=== PATIENT | female | born 1940 | race Caucasian/White ===

== ENCOUNTER → 2019-08-31 | Outpatient (CLI) | payer MEDICARE ==
[2015-12-18 14:15] VITALS: BP 109/58
[2019-08-31 10:25] LABS: ALBUMIN 3.8 g/dL (3.4-5.0); ALBUMIN/GLOBULIN RATIO 1.1 (1.0-1.7); CALCIUM 8.4 mg/dL (8.5-10.1); CREATININE 0.9 mg/dL (0.6-1.0); GFR 60.4; POTASSIUM 4.2 mmol/L (3.5-5.1); TOTAL BILIRUBIN 0.3 mg/dL (0.2-1.0); TOTAL PROTEIN 7.3 g/dL (6.4-8.2)
== END | disposition home or self-care (01) ==
LOC: LAB 09:41
PROVIDERS: ATTEND Nurse Practitioner
DX: E78.5 Hyperlipidemia, unspecified (principal)
CPT/HCPCS: 36415; 80053; 80061

== ENCOUNTER 2020-09-15 12:26 | Emergency (ER) | payer MEDICARE ==
[~2020-09-15] VITALS: Ht 165.1 cm; Wt 73.5 kg
[2020-09-15 12:44] VITALS: BP 145/81
[2020-09-15] MEDS ORDERED: KETOROLAC 30 MG/ML VIAL. IM ONE (13:30)
--- NOTE | 2020-09-15 13:34 | PHYS DOC ---
Past History Past Medical History: CAD, Depression, Diabetes, GERD, High Cholesterol, Hypertension, Other Additional Past Medical Histor: breast cancer 1991 Past Surgical History: Cancer Surgery, Coronary Bypass Surgery, Other Additional Past Surgical Histo: r mastectomy; thyroidectomy; hiatal hernia repair, rapped esophagus for DAYSI Alcohol Use: Rarely Drug Use: None General Adult EDM: Chief Complaint: LOWEREXTREMITY INJURY HPI: HPI: Patient is a 79-year-old female who presents with left leg pain. Patient denies injury. Patient states "last week it started hurting in the middle of my butt and radiated down to the back of my left knee". Patient has increased pain when she is standing and walking makes the pain worse. She has not contacted her PCP prior to arrival who wanted her to come in to get an ultrasound to rule out a DVT. Patient denies shortness of breath or chest pain. patient has history of diabetes and high cholesterol. Review of Systems: Review of Systems: Constitutional: Denies fever or chills Eyes: Denies change in visual acuity HENT: Denies nasal congestion or sore throat Respiratory: Denies cough or shortness of breath Cardiovascular: Denies chest pain or edema GI: Denies abdominal pain, nausea, vomiting, bloody stools or diarrhea : Denies dysuria Musculoskeletal: Denies back pain, pain in left upper leg that radiates behind her knee Integument: Denies rash Neurologic: Denies headache, focal weakness or sensory changes Endocrine: Denies polyuria or polydipsia Lymphatic: Denies swollen glands Psychiatric: Denies depression or anxiety Allergies: Allergies: Allergies Coded Allergies Type Severity Reaction Last Updated Verified Penicillins Allergy Intermediate Swelling 09/15/20 Yes Sulfa (Sulfonamide Antibiotics) Allergy Intermediate Rash 09/15/20 Yes Physical Exam: PE: Constitutional: Well developed, well nourished, no acute distress, non-toxic appearance. [] HENT: Normocephalic, atraumatic, bilateral external ears normal, oropharynx moist, no oral exudates, nose normal. [] Eyes: PERRLA, EOMI, conjunctiva normal, no discharge. [] Neck: Normal range of motion, no tenderness, supple, no stridor. [] Cardiovascular:Heart rate regular rhythm, no murmur [] Lungs & Thorax: Bilateral breath sounds clear to auscultation [] Abdomen: Bowel sounds normal, soft, no tenderness, no masses, no pulsatile masses. [] Skin: Warm, dry, no erythema, no rash. [] Back: No tenderness, no CVA tenderness. [] Extremities: Left leg tenderness, ROM intact, no edema, pedal pulses intact. [] Neurologic: Alert and oriented X 3, normal motor function, normal sensory function, no focal deficits noted. [] Psychologic: Affect normal, judgement normal, mood normal. [] Current Patient Data: Vital Signs: Vital Signs Date Time Temp Pulse Resp B/P (MAP) Pulse Ox O2 Delivery O2 Flow Rate FiO2 09/15/20 12:44 98.0 86 18 145/81 (102) 97 Room Air EKG: EKG: [] Radiology/Procedures: Radiology/Procedures: []EXAM: Left lower extremity venous Doppler sonogram. HISTORY: Pain and swelling. TECHNIQUE: Osborne scale and color Doppler sonographic evaluation of the left lower extremity veins with spectral waveform analysis was performed. FINDINGS: There is normal color flow, normal compressibility and there are normal spectral waveforms in the common femoral, superficial femoral, popliteal, and posterior tibial veins. The greater saphenous vein is surgically absent. IMPRESSION: No Doppler evidence of lower extremity deep venous thrombosis. Electronically signed by: Jade Ochoa MD (09/15/2020 2:12 PM) [id number] Heart Score: C/O Chest Pain: No Risk Factors: Risk Factors: DM, Current or recent (<one month) smoker, HTN, HLP, family hi story of CAD, obesity. Risk Scores: Score 0 - 3: 2.5% MACE over next 6 weeks - Discharge Home Score 4 - 6: 20.3% MACE over next 6 weeks - Admit for Clinical Observation Score 7 - 10: 72.7% MACE over next 6 weeks - Early Invasive Strategies Course & Med Decision Making: Course & Med Decision Making Pertinent Labs and Imaging studies reviewed. (See chart for details) [] Pain starts in the middle of left buttocks and radiates down behind the left knee. I ordered an ultrasound to rule out a DVT. Patient was given Toradol for discomfort. Her son is negative for DVT. Patient most likely has sciatic. I am sending patient home with a prescription for Flexeril and prednisone. Patient is okay with this plan. Patient agrees to return to the emergency room with worsening symptoms or concerns. Enoch Disclaimer: nEoch Disclaimer: This electronic medical record was generated, in whole or in part, using a voice recognition dictation system. Departure Departure: Impression: Primary Impression: Sciatic leg pain Disposition: 01 DC HOME SELF CARE/HOMELESS Condition: STABLE Referrals: HAWA BANKS (PCP) Patient Instructions: Sciatica, [id number] Additional Instructions: You are seen in the emergency room today for left leg pain. Your ultrasound was negative for a DVT. Sending you home with a prescription for Flexeril which is a muscle relaxer. Continue to take ibuprofen at home for discomfort. You may return to the emergency room with worsening symptoms or concerns. EMERGENCY DEPARTMENT GENERAL DISCHARGE INSTRUCTIONS Thank you for coming to [facility] (ED) today and trusting us with you care. We trust that you had a positivie experience in our Emergency Department. If you wish to speak to the department management, you may call the director at [phone]. YOUR FOLLOW UP INSTRUCTIONS ARE FOLLOWS: 1. Do you have a private Doctor? If you do not have a private doctor, please ask for a resource list of physicians or clinics that may be able to assist you with fo llow up care. 2. The Emergency Physician has interpreted your x-rays. The X-Ray specialist will also review them. If there is a change in the findings, you will be notified in 48 hours when at all possible. 3. A lab test or culture has been done, your results will be reviewed and you will be notified if you need a change in treatment. ADDITIONAL INSTRUCTIONS AND INFORMATION: 1. Your care today has been supervised by a physician who is specially trained in emergency care. Many problems require more than one evaluation for a complete diagnosis and treatment. We recommend that you schedule your follow up appointment as recommended to ensure complete treatment of you illness or injury. If you are unable to obtain follow up care and continue to have a problem, or if your condition worsens, we recommend that you return to the ED. 2. We are not able to safely determine your condition over the phone nor are we able to give sound medical advice over the phone. For these safety reasons, if you call for medical advice we will ask you to come to the ED for further evaluation. 3. If you have any questions regarding these discharge instructions please call the ED at [phone]. SAFETY INFORMATION: In the interest of safety, wellness, and injury prevention; we encourage you to wear your sealbelt, if you smoke; quite smoking, and we encourage family to use a protecti ve helmet for bicycling and other sporting events that present an increased risk for head injury. IF YOUR SYMPTOMS WORSEN OR NEW SYMPTOMS DEVELOP, OR YOU HAVE CONCERNS ABOUT YOUR CONDITION; OR IF YOUR CONDITION WORSENS WHILE YOU ARE WAITING FOR YOUR FOLLOW UP APPOINTMENT; EITHER CONTACT YOUR PRIMARY CARE DOCTOR, THE PHYSICIAN WHOSE NAME AND NUMBER YOU WERE GIVEN, OR RETURN TO THE ED IMMEDIATELY. Scripts Cyclobenzaprine Hcl (CYCLOBENZAPRINE HCL) 10 Mg Tablet 10 MG PO TID PRN for PAIN for 10 Days, #30 TAB Prov: ARIELLA GRANT APRN 09/15/20 ARIELLA GRANT APRN Sep 15, 2020 13:34
--- NOTE | 2020-09-15 14:14 | RAD ---
EXAM: Left lower extremity venous Doppler sonogram. HISTORY: Pain and swelling. TECHNIQUE: Osborne scale and color Doppler sonographic evaluation of the left lower extremity veins with spectral waveform analysis was performed. FINDINGS: There is normal color flow, normal compressibility and there are normal spectral waveforms in the common femoral, superficial femoral, popliteal, and posterior tibial veins. The greater saphen ous vein is surgically absent. IMPRESSION: No Doppler evidence of lower extremity deep venous thrombosis. Electronically signed by: Jade Ochoa MD (09/15/2020 2:12 PM) [id number]
[2020-09-15] MEDS ORDERED: CYCL-331 PO (14:37)
== END 2020-09-15 14:52 | disposition home or self-care (01) ==
LOC: ER 12:26
DX: M79.605 Pain in left leg (principal); M54.32 Sciatica, left side; F32.9 Major depressive disorder, single episode, unspecified; E11.9 Type 2 diabetes mellitus without complications; K21.9 Gastro-esophageal reflux disease without esophagitis; E78.00 Pure hypercholesterolemia, unspecified; I10 Essential (primary) hypertension; I25.810 Atherosclerosis of coronary artery bypass graft(s) without angina pectoris; Z88.0 Allergy status to penicillin; Z88.2 Allergy status to sulfonamides
CPT/HCPCS: 93971; 96372; 99284; J1885

== ENCOUNTER 2020-09-23 13:11 | Emergency (ER) | payer MEDICARE ==
[~2020-09-23] VITALS: Ht 165.1 cm; Wt 73.5 kg
[~2020-09-23 13:11] MED LIST: CYCL-331 PO
--- NOTE | 2020-09-23 13:14 | PHYS DOC ---
Past History Past Medical History: CAD, Depression, Diabetes, GERD, High Cholesterol, Hypertension, Other Additional Past Medical Histor: breast cancer 1991 Past Surgical History: Cancer Surgery, Coronary Bypass Surgery, Other Additional Past Surgical Histo: r mastectomy; thyroidectomy; hiatal hernia repair, rapped esophagus for DAYSI Alcohol Use: Rarely Drug Use: None Adult General HPI HPI Patient is a 79-year-old female presents emergency department stating at approximately 730 this morning she was walking outside to feed outside cats while carrying a tray of Food stumbled over a door mat that the wind had blown over on his side falling forward hitting her head at the right brow area on a iron table and then falling to the cement front porch onto her right hip. Patient states she was able to get up off the ground and stand up walked inside felt some slight pain dressed her laceration on her right brow and took a 10 mg hydrocodone for pain. Patient states that she was alternating ice and heat to her right hip area noting that her pain increased as the day went by and decided to come to the emergency department. Patient currently rates her pain a 9/10 on a 1-10 pain scale while she is walking around. Patient denies loss of consciousness, verbal disturbances, dizziness, head or neck pain. Patient denies any nausea, vomiting, diarrhea, chest pain, chest congestion, nasal congestion, abdominal pain, nausea, vomiting, or diarrhea. Patient states that she has hydrocodone 10/325 mg at home for sciatica pain that was diagnosed a week ago by Dr. Hillman. Patient denies any sciatica pain at this time. Patient reports a surgical history of four-vessel coronary bypass in 2000, right mastectomy 1991, thyroidectomy in 2018, hiatal hernia repair with esophageal wrap in March 2020, hysterectomy in 1998, and a tubal ligation in 1969. Patient reports a medication allergy of penicillin and sulfa drugs, states that she becomes nauseated with oral Toradol however cannot tolerate IM or IV Toradol. Patient reports her last tetanus immunization greater than 5 years ago. Review of Systems Review of Systems 14 body systems of review of systems have been reviewed. See HPI for pertinent positives and negative responses, otherwise all other systems are negative, nonpertinent or noncontributory. Allergies Allergies Allergies Coded Allergies Type Severity Reaction Last Updated Verified Penicillins Allergy Intermediate Swelling 09/15/20 Yes Sulfa (Sulfonamide Antibiotics) Allergy Intermediate Rash 09/15/20 Yes Physical Exam Physical Exam Constitutional: Well developed, well nourished, no acute distress, non-toxic appearance. 79-year-old female in no apparent distress was able to transfer self from wheelchair to bed without difficulty. HENT: Normocephalic, atraumatic, bilateral external ears normal, oropharynx moist, no oral exudates, nose normal. Oropharynx moist, no infectious process appreciated, bilateral TMs within normal limits, no lymphadenopathy of the head or neck appreciated, bilateral turbinates nonerythematous without drainage, no mack sign appreciated, no raccoon eyes sign appreciated. Patient does have 0.8 cm laceration to right brow, bleeding controlled. Area of ecchymosis around the laceration of right brow, no swelling or crepitus appreciated. Eyes: PERRLA, EOMI, conjunctiva normal, no discharge. Neck: Normal range of motion, no tenderness, supple, no stridor. No C-spine tenderness appreciated, no nuchal rigidity, no meningismus signs. Cardiovascular:Heart rate regular rhythm, heart sounds S1-S2 to auscultation. Lungs & Thorax: Bilateral breath sounds clear to auscultation all lung garcia, no adventitious lung sounds appreciated. Abdomen: Bowel sounds normal, soft, no tenderness, no masses, no pulsatile masses. Skin: Warm, dry, no erythema, no rash. See HEENT note regarding skin laceration. Back: No tenderness to palpation along midline spinal vertebral column bony prominences or adjacent structures of the back. Extremities: No tenderness, no cyanosis, no clubbing, ROM intact, no edema. Distal cap refill less than 2 seconds, +2/4 pulses. Pain to palpation on right hip, increased pain with pelvic squeeze, limited passive range of motion related to pain of right hip, no crepitus noted, no shortening or external rotation of right lower extremity. No loss of sensation of the right lower extremity. Neurologic: Alert and oriented X 3, normal motor function, normal sensory function, no focal deficits noted. Psychologic: Affect normal, judgement normal, mood normal. Current Patient Data Lab Results Laboratory Tests Test 09/23/20 15:00 Urine Collection Type Unknown Urine Color Yellow Urine Clarity Clear Urine pH 7.0 Urine Specific [place] 1.020 Urine Protein Neg Urine Glucose (UA) Neg mg/dL Urine Ketones (Stick) Neg mg/dL Urine Blood Trace Urine Nitrite Neg Urine Bilirubin Neg Urine Urobilinogen Dipstick 0.2 mg/dL Urine Leukocyte Esterase Trace Urine RBC 0 /HPF Urine WBC Occ /HPF Urine Squamous Epithelial Cells Occ /LPF Urine Bacteria 0 /HPF Urine Mucus Slight /LPF Current Medications Medications (Trade) Dose Ordered Sig/Mamta Route PRN Reason Start Time Stop Time Status Last Admin Dose Admin Ketorolac Tromethamine (Toradol 15mg Vial) 15 mg 1X ONCE IM 09/23/20 13:45 09/23/20 13:50 DC 09/23/20 14:01 Acetaminophen/ Hydrocodone Bitart (Lortab 10/325) 1 tab 1X ONCE PO 09/23/20 13:45 09/23/20 13:50 DC 09/23/20 14:03 Diphtheria/ Pertussis/Tetanus Vacc (ADACEL TDap SYRINGE) 0.5 ml ONCE ONCE VAX IM 09/23/20 13:45 09/23/20 13:50 DC 09/23/20 14:04 EKG EKG [] Radiology/Procedures Radiology/Procedures []PATIENT: ISH DUMAS EACCOUNT: [id number]#: [id number] : 1940 LOCATION: ER AGE: 79 SEX: F EXAM STATUS: REG ER ORD. PHYSICIAN: ANY JOHN APRN REASON: FALL, RT BROW CONTUSION/LACERATION, BLUNT HEAD TRAUMA PROCEDURE: CT HEAD AND CERVICAL SPINE WO Examination: CT head and cervical spine without contrast CT HEAD INDICATION: Reason: FALL, RT BROW CONTUSION/LACERATION, BLUNT HEAD TRAUMA COMPARISON: None Available. Exposure: One or more of the following individualized dose reduction techniques were utilized for this examination: 1. Automated exposure control 2. Adjustment of the mA and/or kV according to patient size 3. Use of iterative reconstruction technique TECHNIQUE: 5 mm contiguous axial images were obtained from the skull base to the vertex in both bone and soft tissue algorithm. FINDINGS: No abnormal attenuation within the brain parenchyma. No evidence of acute intracranial hemorrhage. No extra-axial fluid collections. No mass effect or midline shift. Ventricular size is appropriate. Basal ci sterns are patent. No fractures identified.Osborne-white differentiation is preserved.Globes and orbits are within normal limits. Paranasal sinuses and mastoid air cells are clear. CT CERVICAL SPINE INDICATION: Reason: FALL, RT BROW CONTUSION/LACERATION, BLUNT HEAD TRAUMA / Spl. Instructions: / History: COMPARISON: None Available. Technique: 2.5 mm contiguous axial images were obtained from the skull base through the cervicothoracic junction in both bone and soft tissue algorithm. Additional sagittal and coronal reconstructions were also performed. FINDINGS: Vertebral body height and alignment are maintained. Cervical lordosis is preserved. The lateral masses of C1 are aligned upon C2. No fractures identified. The bony canal is patent throughout. Moderate intervertebral disc height loss identified in the cervical spine most at C5-C6, C6-C7 vertebral levels with small anterior and posterior osteophyte formation. The facets are well aligned. The paraspinous soft tissues are unremarkable. Visualized intracranial contents are unremarkable. Lung apices are clear. IMPRESSION: 1. No acute intracranial findings. 2. No acute fracture cervical spine. Correlate clinically. 3.Moderate degenerative changes cervical spine. Electronically signed by: Logan Radford MD (09/23/2020 2:48 PM) [id number] DICTATED AND SIGNED BY: LOGAN RADFORD MD DATE: 09/23/20 1435 CC: ANY JOHN APRN; [facility] BANKS ~MTH0 0 PATIENT: ISH DUMAS EACCOUNT: [id number] : 1940 LOCATION: ER AGE: 79 SEX: F EXAM STATUS: REG ER ORD. PHYSICIAN: ANY JOHN APRN REASON: FALL, RT HIP PAIN PROCEDURE: HIP RIGHT 2V WITH PELVIS PROCEDURE: XR BILATERAL HIP (WITH OR WITHOUT PELVIS) 2 VIEWS_RIGHT STUDY DATE: 09/23/2020 CLINICAL INDICATION / HISTORY: Reason: FALL, RT HIP PAIN / Spl. Instructions: / History: . TECHNIQUE: Three views of the right hip were obtained. COMPARISON: None FINDINGS: The osseous structures are normally mineralized. There is normal bony alignment present with the femoral heads well-seated within the acetabuli. There is cortical discontinuity in the subcapital right femoral neck, suspicious for nondisplaced fracture. There is otherwise no evidence of acute fracture or dislocation identified. The overlying soft tissues are grossly unremarkable. IMPRESSION: Findings suspicious for nondisplaced acute subcapital right hip fracture. Electronically signed by: Tracy Sarmiento MD (09/23/2020 2:37 PM) [id number] DICTATED AND SIGNED BY: TRACY SARMIENTO MD DATE: 09/23/20 1435 CC: ANY JOHN APRN; [facility] BANKS Aneesh ~MTH0 0 Heart Score C/O Chest Pain: No Risk Factors: Risk Factors: DM, Current or recent (<one month) smoker, HTN, HLP, family history of CAD, obesity. Risk Scores: Risk Factors: DM, Current or recent (<one month) smoker, HTN, HLP, family hist ory of CAD, obesity. Course & Med Decision Making Course & Med Decision Making Pertinent Labs and Imaging studies reviewed. (See chart for details) 79-year-old female, vital signs reviewed, presents emergency department co ncerning right hip pain after fall. Physical examination concerning for possible head injury related to laceration of right brow, and possible bony injury of right hip or pelvis related to fall and physical examination findings. A CT head and C-spine ordered in the ER today along with x-ray imaging of right hip and pelvis. Patient's tetanus status was brought up-to-date today in the emergency department, right brow laceration see laceration repair note. Patient was given 15 mg IM Toradol along with 110/325 mg [place] in the ED for 9/10 pain. A urinalysis assay was ordered to rule out blood in urine for possible hip fracture induced urethral injury. X-ray concerning for " Findings suspicious for nondisplaced acute subcapital right hip fracture." Per house radiologist interpretation. CT head and C-spine negative for acute process per house radiologist interpretation. Reexamination of the patient, patient is now pain-free, stating that she only feels slight pain when she moves her right hip. Discussed x-ray findings with patient, recommended transfer to [facility] for evaluation with orthopedic specialty. Patient refused this stating she wishes to go to [facility] since she sees a Dr. Hillman that is with the [facility]. Called [facility] transfer team, spoke with trauma physician Dr. Lara and ER physician Dr. Manriquez who agreed to accept patient in transfer to [facility] for admission and further evaluation of right hip fracture. Discussed this with patient who is amenable to this plan, patient awaiting transfer to [facility] at this time. Patient remains pain-free, patient is now n.p.o. until examined by [facility] physicians. Enoch Disclaimer Dragon Disclaimer This electronic medical record was generated, in whole or in part, using a voice recognition dictation system. Departure Departure: Impression: Primary Impression: Closed right hip fracture Additional Impressions: Facial laceration Closed head injury Disposition: 02 DC/TRF OTHER SHORT TERM HOS (Patient transferred to [facility] for orthopedic specialty.) Condition: STABLE Referrals: HAWA BANKS (PCP) Laceration Repair Lac Repair Indication: [] Laceration right brow Procedure: The patient was placed in the appropriate position and anesthesia around the not indicated. The area was then chlorhexidine soap and normal saline. The laceration was closed with Dermabond skin glue. Laceration repair site left open no dressing needed. Total repaired wound length: 0.8 cm Other Items: There were no other items. The patient tolerated the procedure well. Complications: No complications. Problem Qualifiers Primary Impression: Closed right hip fracture Encounter type: initial encounter Qualified Codes: S72.001A - Fracture of unspecified part of neck of right femur, initial encounter for closed f racture Additional Impressions: Facial laceration Encounter type: initial encounter Qualified Codes: S01.81XA - Laceration without foreign body of other part of head, initial encounter Closed head injury Encounter type: initial encounter Qualified Codes: S09.90XA - Unspecified injury of head, initial encounter ANY JOHN CERAMIC RESEARCH ENGINEER Sep 23, 2020 13:14
[2020-09-23] MEDS ORDERED: KETOROLAC 15 MG/ML VIAL. IM ONE (13:45)
[2020-09-23] MEDS ORDERED: DIPH,PERTUSS(ACELL),TET VAC/PF 0.5 ML SYRINGE. VAX IM ONE (13:45)
[2020-09-23] MEDS ORDERED: HYDROcodone/APAP 10/325 1 TAB TABLET PO ONE (13:45)
--- NOTE | 2020-09-23 14:39 | RAD ---
PROCEDURE: XR BILATERAL HIP (WITH OR WITHOUT PELVIS) 2 VIEWS_RIGHT STUDY DATE: 09/23/2020 CLINICAL INDICATION / HISTORY: Reason: FALL, RT HIP PAIN / Spl. Instructions: / History: . TECHNIQUE: Three views of the right hip were obtained. COMPARISON: None FINDINGS: The osseous structures are normally mineralized. There is normal bony alignment present wit h the femoral heads well-seated within the acetabuli. There is cortical discontinuity in the subcapi isabela right femoral neck, suspicious for nondisplaced fracture. There is otherwise no evidence of acute fracture or dislocation identified. The overlying soft tissues are grossly unremarkable. IMPRESSION: Findings suspicious for nondisplaced acute subcapital right hip fracture. Electronically signed by: Jackson Sarmiento MD (09/23/2020 2:37 PM) [id number]
--- NOTE | 2020-09-23 14:50 | RAD ---
Examination: CT head and cervical spine without contrast CT HEAD INDICATION: Reason: FALL, RT BROW CONTUSION/LACERATION, BLUNT HEAD TRAUMA COMPARISON: None Available. Exposure: One or more of the following individualized dose reduction techniques were utilized for thi s examination: 1. Automated exposure control 2. Adjustment of the mA and/or kV according to patient size 3. Use of iterative reconstruction technique TECHNIQUE: 5 mm contiguous axial images were obtained from the skull base to the vertex in both bone and soft tissue algorithm. FINDINGS: No abnormal attenuation within the brain parenchyma. No evidence of acute intracranial hemorrhage. No extra-axial fluid collections. No mass effect or midline shift. Ventricular size is appropriate. Basal cisterns are patent. No fractures identified.Osborne-white differentiation is preserved.Globes and orbits are within normal l imits. Paranasal sinuses and mastoid air cells are clear. CT CERVICAL SPINE INDICATION: Reason: FALL, RT BROW CONTUSION/LACERATION, BLUNT HEAD TRAUMA / Spl. Instructions: / His tory: COMPARISON: None Available. Technique: 2.5 mm contiguous axial images were obtained from the skull base through the cervicothorac ic junction in both bone and soft tissue algorithm. Additional sagittal and coronal reconstructions were also performed. FINDINGS: Vertebral body height and alignment are maintained. Cervical lordosis is preserved. The l ateral masses of C1 are aligned upon C2. No fractures identified. The bony canal is patent throughout. Moderate intervertebral disc height loss identified in the cervical spine most at C5-C6, C6-C7 verteb ral levels with small anterior and posterior osteophyte formation. The facets are well aligned. The paraspinous soft tissues are unremarkable. Visualized intracranial contents are unremarkable. L sandy apices are clear. IMPRESSION: 1. No acute intracranial findings. 2. No acute fracture cervical spine. Correlate clinically. 3.Moderate degenerative changes cervical spine. Electronically signed by: Logan Radford MD (09/23/2020 2:48 PM) [id number]
[2020-09-23 15:22] LABS: BACTERIA,URINE 0 /HPF (0-FEW); BILIRUBIN,URINE NEG (NEG); CLARITY,URINE CLEAR; COLOR,URINE YELLOW; GLUCOSE,URINE NEG (NEG); NITRITE,URINE NEG (NEG); RBC,URINE 0 /HPF (0-2); SQUAMOUS EPITHELIAL CELL,UR OCC /LPF; UROBILINOGEN,URINE 0.2 mg/dL (0.2 mg/dL); WBC,URINE OCC /HPF (0-4)
[2020-09-23 15:59] VITALS: BP 109/86
== END 2020-09-23 17:22 | disposition short-term general hospital (02) ==
LOC: ER 13:11
DX: S72.001A Fracture of unspecified part of neck of right femur, initial encounter for closed fracture (principal); S01.111A Laceration without foreign body of right eyelid and periocular area, initial encounter; I25.810 Atherosclerosis of coronary artery bypass graft(s) without angina pectoris; F32.9 Major depressive disorder, single episode, unspecified; E11.9 Type 2 diabetes mellitus without complications; K21.9 Gastro-esophageal reflux disease without esophagitis; E78.00 Pure hypercholesterolemia, unspecified; I10 Essential (primary) hypertension; Z88.0 Allergy status to penicillin; Z88.2 Allergy status to sulfonamides; W18.09XA Striking against other object with subsequent fall, initial encounter; Y93.89 Activity, other specified; Y92.89 Other specified places as the place of occurrence of the external cause; Y99.8 Other external cause status
CPT/HCPCS: 12011; 70450; 72125; 73502; 81001; 87086; 90471; 90715; 96372; 96374; 99285; J1885; J3010